=== PATIENT | female | born 1980 | race American Indian/Alaskan Native ===

== ENCOUNTER 2021-06-03 21:13 | Emergency (ER) | payer MEDICAID ==
[2021-06-03 21:43] VITALS: BP 134/90
--- NOTE | 2021-06-03 22:43 | Emergency Department Report ---
ED ENT HPI - General Chief complaint: Earache Stated complaint: CAN'T HEAR OUT OF RIGHT EAR Time Seen by Provider: 06/03/21 21:53 Source: patient Mode of arrival: Ambulatory Limitations: No Limitations - History of Present Illness Initial comments: 41-year-old [place] female presents [facility] complaining of a painless ear pressure to the right ear which started after she woke up earlier today so she came to [facility] is to seek evaluation. No fever, chills, sweats. No presyncope, no headache, no sore throat, no blurred vision, no nausea, no vomiting, no tinnitus she reports no trauma. - Related Data Home Medications Medication Instructions Recorded Confirmed Last Taken Aspirin TAB 81 mg PO DAILY 01/18/15 01/18/15 01/18/15 Previous Rx's Medication Instructions Recorded Last Taken Type Acetamin/Codeine 120-12Mg/5 ml 5 ml PO TID PRN #30 ml 01/24/15 Unknown Rx [Tylenol/Codeine] Azithromycin [Zithromax Z-LAURA] 250 mg PO DAILY #6 tablet 01/24/15 Unknown Rx Cetirizine HCl [Allergy Relief] 10 mg PO DAILY #14 tablet 01/24/15 Unknown Rx Fluticasone [Flonase] 1 spray NS QDAY #1 bottle 01/24/15 Unknown Rx Allergies Allergy/AdvReac Type Severity Reaction Status Date / Time No Known Allergies Allergy Verified 10/17/14 07:17 ED Dental HPI - General Chief complaint: Earache Stated complaint: CAN'T HEAR OUT OF RIGHT EAR Time Seen by Provider: 06/03/21 21:53 Source: patient Mode of arrival: Ambulatory Limitations: No Limitations - Related Data Home Medications Medication Instructions Recorded Confirmed Last Taken Aspirin TAB 81 mg PO DAILY 01/18/15 01/18/15 01/18/15 Previous Rx's Medication Instructions Recorded Last Taken Type Acetamin/Codeine 120-12Mg/5 ml 5 ml PO TID PRN #30 ml 01/24/15 Unknown Rx [Tylenol/Codeine] Azithromycin [Zithromax Z-LAURA] 250 mg PO DAILY #6 tablet 01/24/15 Unknown Rx Cetirizine HCl [Allergy Relief] 10 mg PO DAILY #14 tablet 01/24/15 Unknown Rx Fluticasone [Flonase] 1 spray NS QDAY #1 bottle 01/24/15 Unknown Rx Allergies Allergy/AdvReac Type Severity Reaction Status Date / Time No Known Allergies Allergy Verified 10/17/14 07:17 ED Review of Systems ROS: Stated complaint: CAN'T HEAR OUT OF RIGHT EAR Other details as noted in HPI Comment: All other systems reviewed and negative ED Past Medical Hx - Past Medical History Previous Medical History?: Yes Hx Hypertension: Yes Hx Heart Attack/AMI: Yes Hx Congestive Heart Failure: Yes - Surgical History Past Surgical History?: Yes Hx Open Heart Surgery: Yes (quad bypass 2011) - Social History Smoking Status: Current Some Day Smoker Substance Use Type: None - Medications Home Medications: Home Medications Medication Instructions Recorded Confirmed Last Taken Type Aspirin TAB 81 mg PO DAILY 01/18/15 01/18/15 01/18/15 History Acetamin/Codeine 120-12Mg/5 ml 5 ml PO TID PRN #30 ml 01/24/15 Unknown Rx [Tylenol/Codeine] Azithromycin [Zithromax Z-LAURA] 250 mg PO DAILY #6 tablet 01/24/15 Unknown Rx Cetirizine HCl [Allergy Relief] 10 mg PO DAILY #14 tablet 01/24/15 Unknown Rx Fluticasone [Flonase] 1 spray NS QDAY #1 bottle 01/24/15 Unknown Rx ED Physical Exam - General Limitations: No Limitations General appearance: alert, in no apparent distress - Head Head exam: Present: atraumatic, normocephalic - Eye Eye exam: Present: normal appearance - ENT ENT exam: Present: mucous membranes moist, other (Right ear canal has cerumen buildup noted. No tragal tenderness no mastoid tenderness) - Neck Neck exam: Present: normal inspection - Respiratory Respiratory exam: Present: normal lung sounds bilaterally - Cardiovascular Cardiovascular Exam: Absent: regular rate, normal rhythm - Extremities Exam Extremities exam: Present: normal inspection - Back Exam Back exam: Absent: CVA tenderness (R), CVA tenderness (L) - Neurological Exam Neurological exam: Present: alert, CN II-XII intact - Psychiatric Psychiatric exam: Present: normal affect, normal mood ED Course Vital Signs 06/03/21 21:40 Temperature 98.3 F Pulse Rate 93 H Respiratory 16 Rate Blood Pressure 134/90 O2 Sat by Pulse 100 Oximetry Critical care attestation.: If time is entered above; I have spent that time in minutes in the direct care of this critically ill patient, excluding procedure time. ED Disposition Clinical Impression: Impacted cerumen of right ear Disposition: HOME / SELF CARE / HOMELESS Is pt being admited?: No Does the pt Need Aspirin: No Condition: Stable Instructions: Ear Drops, Adult, Earwax Buildup, Adult, Ear Irrigation Additional Instructions: Please utilize [id number] to help resolve your ear issues Referrals: [facility] [Provider Group] - 3-5 Days
== END 2021-06-03 23:00 | disposition home or self-care (01) ==
LOC: ED 21:13
DX: H61.21 Impacted cerumen, right ear (principal); I11.0 Hypertensive heart disease with heart failure; I50.9 Heart failure, unspecified; I25.2 Old myocardial infarction; F17.200 Nicotine dependence, unspecified, uncomplicated
CPT/HCPCS: 99281